=== PATIENT | female | born 1960 | race Asian ===

== ENCOUNTER → 2018-01-15 | Outpatient (CLI) | payer BC | LOC: MC.RAD 09:00 | DX: Z12.31 Encounter for screening mammogram for malignant neoplasm of breast (principal) ==

== ENCOUNTER → 2018-01-15 | Outpatient (CLI) | payer BC | LOC: MC.RAD 12-11 07:00 | DX: Z12.31 Encounter for screening mammogram for malignant neoplasm of breast (principal) ==